=== PATIENT | female | born 2000 | race Caucasian/White ===

== ENCOUNTER 2019-02-10 08:15 | Emergency (ER) | payer OTHER ==
[~2019-02-10] VITALS: Ht 167.6 cm; Wt 55.8 kg
[2019-02-10 08:15] VITALS: BP 98/63
--- NOTE | 2019-02-10 08:16 | NUR ---
PT TRAVON BLS TO ER BED 06
--- NOTE | 2019-02-10 08:25 | NUR ---
BIBA W C/O N/V/D/BILAT LOWER ABD PAIN 6/10 X4 DAYS. PT STATES SHE HAS BEEN HAVING VERY INTENSE MENSTRUAL CRAMPS. ABD. SOFT/FLAT/ NON TENDER TO PALPATION. LBM TODAY: DIARRHEA. BOWEL SOUNDS PRESENT X4. DENIES FEVER. PT PROVIDING URINE SAMPLE. SIDE RAIL UP X1, BED IN LOWEST POSITION.
--- NOTE | 2019-02-10 08:34 | NUR ---
DR. FUNG AT BEDSIDE
[2019-02-10] MEDS ORDERED: NACL 0.9% 1,000 ML IV ONE (08:39)
[2019-02-10] MEDS ORDERED: NACL 0.9% 1,000 ML IV SCH (08:39)
[2019-02-10] MEDS ORDERED: ONDANSETRON 4 MG/2 ML VIAL IVP ONE (08:40)
[2019-02-10] MEDS ORDERED: KETOROLAC 30 MG/ML VIAL IVP ONE (08:40)
--- NOTE | 2019-02-10 08:56 | NUR ---
PT REFUSED ZOFRAN, STATES SHE IS NOT HAVING NAUSEA AT THIS TIME.
[2019-02-10 09:00] LABS: BASOPHILS # (AUTO) 0.1 K/uL (0.00-0.22); BASOPHILS % (AUTO) 0.5 % (0.0-2.0); EOSINOPHILS # (AUTO) 0.1 K/uL (0-0.4); EOSINOPHILS % (AUTO) 0.6 % (0.0-4.0); HEMATOCRIT 41.8 % (36-48); HEMOGLOBIN 14.1 g/dL (12.0-16.0); LYMPHOCYTES # (AUTO) 1.4 K/uL (2.5-16.5); LYMPHOCYTES % (AUTO) 14.5 % (20.5-51.1); MEAN CORPUSCULAR HEMOGLOBIN 31 pg (27-31); MEAN CORPUSCULAR HGB CONC 34 g/dL (33-37); MEAN CORPUSCULAR VOLUME 90.6 fL (80-94); MONOCYTES # (AUTO) 0.3 K/uL (0.8-1.0); MONOCYTES % (AUTO) 3.3 % (1.7-9.3); NEUTROPHILS # (AUTO) 7.9 K/uL (1.8-7.7); NEUTROPHILS % (AUTO) 81.1 % (42.2-75.2); PLATELET COUNT (AUTO) 193 K/uL (140-450); RED BLOOD CELL COUNT(AUTO) 4.61 MIL/uL (4.20-5.40); RED CELL DISTRIBUTION WIDTH 12.6 % (11.6-13.7); WHITE BLOOD COUNT (AUTO) 9.7 K/uL (4.5-11.0)
[2019-02-10 09:10] LABS: APPEARANCE,URINE HAZY (CLEAR); BILIRUBIN,URINE NEGATIVE (NEGATIVE); BLOOD, URINE 3+ (NEGATIVE); COLOR,URINE ORANGE (YELLOW); LEUKOCYTE ESTERASE ,URINE TRACE (NEGATIVE); NITRITE, URINE POSITIVE (NEGATIVE); UGLUCOSE NEGATIVE (NEGATIVE)
[2019-02-10 09:31] LABS: ANION GAP 14.7 (8-16); CARBON DIOXIDE 28.1 mmol/L (21-32); CREATININE 0.7 mg/dL (0.6-1.3); POTASSIUM 3.8 mmol/L (3.5-5.1); TOTAL BILIRUBIN 0.4 mg/dL (0.0-1.0)
[2019-02-10 09:49] LABS: RBC,URINE 11-20 (MOD) /HPF (0-5); WBC,URINE 0-5 /HPF (0-5)
[2019-02-10] MEDS ORDERED: CALCIUM CARBONATE 500 MG TAB.CHEW PO STA (10:22)
--- NOTE | 2019-02-10 10:28 | NUR ---
CALLED PHARMACY FOR TUMS, THEY WILL BRING OVER
[2019-02-10] MEDS ORDERED: LEVOFLOXACIN 500 MG TAB PO ONE (10:30)
[2019-02-10 11:08] VITALS: BP 98/60
--- NOTE | 2019-02-10 11:08 | NUR ---
Patient discharged with v/s stable. Written and verbal after care instructions given and explained. Patient alert, oriented and verbalized understanding of instructions. Ambulatory with steady gait. All questions addressed prior to discharge. ID band removed. Patient advised to follow up with PMD. Rx of BACTRIM, ANAPROX given. Patient educated on indication of medication including possible reaction and side effects. Opportunity to ask questions provided and answered.
== END 2019-02-10 11:08 | disposition home or self-care (01) ==
LOC: MED 08:15
DX: N94.6 Dysmenorrhea, unspecified (principal); R19.7 Diarrhea, unspecified; N39.0 Urinary tract infection, site not specified
CPT/HCPCS: 36415; 76856; 80053; 81001; 81025; 82150; 83690; 85025; 96361; 96374; 99284; J1885; J2405; Q0092